=== PATIENT | female | born 2000 | race Two or more races ===

== ENCOUNTER 2020-08-02 01:23 | Emergency (ER) | payer BC, MEDICAID ==
[~2020-08-02] VITALS: Ht 167.6 cm; Wt 54.4 kg
[2020-08-02 04:34] VITALS: BP 115/73
== END 2020-08-02 05:51 | disposition home or self-care (01) ==
LOC: ER 01:23
DX: T16.1XXA Foreign body in right ear, initial encounter (principal); X58.XXXA Exposure to other specified factors, initial encounter; Y93.89 Activity, other specified; Y92.89 Other specified places as the place of occurrence of the external cause; Y99.8 Other external cause status